=== PATIENT | female | born 1975 | race Caucasian/White ===

== ENCOUNTER → 2019-06-05 | Outpatient (CLI) | payer BC ==
--- NOTE | 2019-06-05 11:11 | RAD ---
EXAM DESCRIPTION: Ankle,Right 3 Views CLINICAL HISTORY: 43 years, Female, PAIN IN RIGHT ANKLE AND JOINTS OF RIGHT FOOT COMPARISON: Previous x-rays of the right ankle May 27, 2019 TECHNIQUE: AP/lateral/oblique of the right ankle FINDINGS: Intact medial and lateral malleolus. There is no significant soft tissue swelling laterally or medially. Intact proximal metatarsals. Intact dome of the talus. Lateral view shows no evidence of fracture of the body of the talus or calcaneus. However a coronally oriented fracture line is seen through the distal metaphysis and epiphysis of the right tibia consistent with a "posterior malleolar fracture". No change in alignment since previous study. No definite bridging callus formation. Mild dorsal calcaneal spurring is seen. IMPRESSION: Distal right tibial fracture unchanged. Electronically signed by: Augustin Dhaliwal MD 06/05/2019 11:09 AM CDT
--- NOTE | 2019-06-05 11:13 | RAD ---
EXAM DESCRIPTION: Tibia/Fibula,Right CLINICAL HISTORY: 43 years Female, PAIN IN RIGHT LEG COMPARISON: Previous study May 27, 2019 FINDINGS: Oblique or spiral fracture of the proximal fibula is seen. No callus formation. No change in alignment since previous study. Proximal tibia appears intact. Lateral view shows oblique fracture of the proximal fibula and coronally oriented longitudinal fracture of the distal tibia. IMPRESSION: Fractured proximal right fibula and distal right tibia unchanged in alignment. Electronically signed by: Augustin Dhaliwal MD 06/05/2019 11:11 AM CDT
== END ==
LOC: RAD 07:54
PROVIDERS: ATTEND Orthopaedic Surgery
DX: S82.832D Other fracture of upper and lower end of left fibula, subsequent encounter for closed fracture with routine healing (principal); S82.301D Unspecified fracture of lower end of right tibia, subsequent encounter for closed fracture with routine healing

== ENCOUNTER → 2019-07-02 | Outpatient (CLI) | payer BC ==
--- NOTE | 2019-07-02 17:24 | RAD ---
EXAM DESCRIPTION: Tibia/Fibula,Right CLINICAL HISTORY: 43 years Female, S82.91XD. Pain. COMPARISON: 06/05/2019. FINDINGS/IMPRESSION: Frontal and lateral views of the right tibia/fibula demonstrate healing proximal fibula diametaphyseal fracture and posterior malleolus fractures with progressive periosteal new bone/callus formation and stable osseous alignment. Mild fracture lucency persists. Electronically signed by: Gavino Espinosa DO 07/02/2019 5:23 PM CDT
== END ==
LOC: RAD 08:21
PROVIDERS: ATTEND Orthopaedic Surgery
DX: S82.832D Other fracture of upper and lower end of left fibula, subsequent encounter for closed fracture with routine healing (principal); S82.301D Unspecified fracture of lower end of right tibia, subsequent encounter for closed fracture with routine healing